=== PATIENT | female | born 1985 | race Hispanic/Latino ===

== ENCOUNTER 2017-03-10 03:29 | Emergency (ER) | payer BC ==
[2017-03-10 04:24] LABS: Bilirubin Negative (Negative); Blood, Urine Negative (Negative); Glucose, Urine (Dipstick) Negative (Negative); Ketone, Urine Negative (Negative); Nitrite Negative (Negative); Protein, Urine (Dipstick) Negative (Neg-Trace); Urobilinogen 0.2 mg/dL (0.2-1.0)
[2017-03-10 04:43] LABS: #Eosinphils 0.1 thou/uL (0.0-0.7); #Lymphocytes 2.3 thou/uL (1.20-3.40); #Monocytes 0.6 thou/uL (0.11-0.59); %Basophils 0.4 % (0.0-1.0); %Eosinophils 1.1 % (0.0-10.0); %Lymphocytes 25.8 % (21.0-51.0); %Monocytes 6.2 % (0.0-10.0); Hematocrit 38.1 % (36.0-47.0); Mean Platelet Volume 8.5 fL (7.4-10.4); Red Blood Cell (RBC) Count 4.31 mill/uL (4.20-5.40)
[2017-03-10 05:02] LABS: ALT (SGPT) 27 U/L (8-55); AST (SGOT) 19 U/L (5-34); Alkaline Phosphatase 99 U/L (40-150); Anion Gap 11 mmol/L (10-20); BUN (Urea Nitrogen) 8 mg/dL (7.0-18.7); Bilirubin, Total 0.5 mg/dL (0.2-1.2); Calc. Creatinine Clearance 0 mL/min (70-130); Calcium 8.9 mg/dL (7.8-10.44); Carbon Dioxide 24 mmol/L (22-29); Chloride 107 mmol/L (98-107); Estimated GFR-MDRD Greater than 90; Globulin 2.9 g/dL (2.4-3.5); Protein, Total 6.9 g/dL (6.0-8.3)
[2017-03-10 05:25] LABS: Lipase 10 U/L (8-78)
--- NOTE | 2017-03-10 08:35 | RAD ---
ACUTE ABDOMINAL SERIES: Date: 03/10/17 INDICATION: 32-year-old female with abdominal pain starting 2 weeks ago that started in the umbilical region and extends down into the right lower quadrant. This has reportedly worsened since Wednesday. The patient states that she has been having nausea and diarrhea. FINDINGS: The lungs are clear. Cardiomediastinal silhouette is normal. No pneumoperitoneum is evident. There is mild thoracolumbar scoliosis. There are surgical clips within the right upper quadrant suspicious for prior cholecystectomy. The theresa wel gas pattern is unobstructed. No acute osseous abnormality is evident. Small phleboliths are seen within the lower left hemipelvis. No suspicious calcifications are seen overlying the renal shadows o r course of the renal collecting systems. IMPRESSION: 1. No acute abnormality demonstrated involving the chest or abdomen. 2. Cholecystectomy. 3. Mild thoracolumbar scoliosis. POS: [facility]
== END 2017-03-10 05:50 | disposition home or self-care (01) ==
LOC: ERS 03:29
DX: A08.4 Viral intestinal infection, unspecified (principal)
CPT/HCPCS: 36415; 74022; 80053; 81003; 83690; 85025; 86140

== ENCOUNTER 2017-05-27 15:45 | Emergency (ER) | payer BC ==
[2017-05-27 16:15] LABS: #Basophils 0.1 thou/uL (0.0-0.2); #Eosinphils 0.1 thou/uL (0.0-0.7); #Lymphocytes 1.8 thou/uL (1.20-3.40); #Monocytes 0.4 thou/uL (0.11-0.59); #Neutrophils 5.9 thou/uL (1.40-6.50); %Basophils 0.6 % (0.0-1.0); %Eosinophils 0.9 % (0.0-10.0); %Lymphocytes 22.1 % (21.0-51.0); %Monocytes 5.3 % (0.0-10.0); %Neutrophils 71.1 % (42.0-75.0); Hemoglobin 14.1 g/dL (12.0-16.0); Mean Corpuscular HGB CONC 34.8 g/dL (32.0-36.0); Mean Corpuscular Hemoglobin 29.7 pg (27.0-31.0); Mean Corpuscular Volume 85.1 fl (81.0-99.0); Mean Platelet Volume 9.1 fL (7.4-10.4); Platelet Count 179 thou/uL (130-400); RBC Distribution Width 12.4 % (11.5-14.5); Red Blood Cell (RBC) Count 4.77 mill/uL (4.20-5.40); White Blood Cell (WBC) Count 8.3 thou/uL (4.8-10.8)
[2017-05-27 16:37] LABS: ALT (SGPT) 33 U/L (8-55); AST (SGOT) 25 U/L (5-34); Albumin 4.5 g/dL (3.5-5.0); Alkaline Phosphatase 95 U/L (40-150); Anion Gap 13 mmol/L (10-20); BUN (Urea Nitrogen) 5 mg/dL (7.0-18.7); Bilirubin, Total 0.5 mg/dL (0.2-1.2); Calc. Creatinine Clearance 0 mL/min (70-130); Calcium 9.4 mg/dL (7.8-10.44); Carbon Dioxide 24 mmol/L (22-29); Chloride 106 mmol/L (98-107); Estimated GFR-MDRD Greater than 90; Glucose 100 mg/dL (70-105); Protein, Total 7.5 g/dL (6.0-8.3); Sodium 139 mmol/L (136-145)
[2017-05-27 16:41] LABS: CKMB 0.4 ng/mL (0-6.6); Troponin I Less than 0.010 ng/mL (< 0.028)
[2017-05-27] MEDS ORDERED: Dicyclomine 20 MG TAB ONE (16:41)
[2017-05-27] MEDS ORDERED: Mag-Al 1200 mg/1200 mg/30 ML UDCUP ONE (16:41)
[2017-05-27] MEDS ORDERED: Famotidine/PF 20 mg/2ml Vial ONE (16:41)
[2017-05-27] MEDS ORDERED: Lidocaine Viscous Sol 2% 15 ml UD Cup ONE (16:41)
--- NOTE | 2017-05-27 16:44 | RAD ---
RADIOGRAPH OF CHEST FRONTAL VIEW 05/27/17 Reference made to radiograph series 03/10/17. INDICATION: Chest pain. FINDINGS: There is no consolidation or effusion. Cardiac silhouette is within normal limits in size. Mild incre ased density is seen related to overlying body wall soft tissues. No significant vascular congestion. Osseous structures are nonacute in appearance. IMPRESSION: No focal consolidation. POS: [facility]
[2017-05-27 17:08] LABS: Bilirubin Negative (Negative); Blood, Urine Negative (Negative); Clarity CLOUDY (Clear); Glucose, Urine (Dipstick) Negative (Negative); Leukocyte Small (Negative); Nitrite Negative (Negative); Protein, Urine (Dipstick) Negative (Neg-Trace); Specific Gravity, Urine 1.009 (1.002-1.036); Urobilinogen 0.2 mg/dL (0.2-1.0); pH, Urine 7.5 (5.0-9.0)
[2017-05-27 17:14] LABS: Bacteria/HPF 1+ HPF (None Seen); Hyaline Casts/LPF 0-3 HYALINE CAST LPF (0-3 Hyaline); RBC/HPF 0-3 HPF (0-3); WBC/HPF 0-3 HPF (0-3)
== END 2017-05-27 16:50 | disposition home or self-care (01) ==
LOC: ERS 15:45
DX: K29.70 Gastritis, unspecified, without bleeding (principal)
CPT/HCPCS: 71045; 80053; 81003; 81015; 82553; 84484; 85025; 93005; 96374; S0028

== ENCOUNTER 2017-06-18 15:29 | Outpatient (CLI) | payer BC | END 2017-06-18 15:30 | disposition home or self-care (01) | LOC: BICCT 15:29 | PROVIDERS: ATTEND Family Medicine | DX: R07.89 Other chest pain (principal) | CPT/HCPCS: 71250; 81001; 87086 ==

== ENCOUNTER 2017-06-20 20:44 | Emergency (ER) | payer BC ==
[~2017-06-20 20:44] MED LIST: ISOVUE-370 76%-LOCM 1 ML ONE
[2017-06-20 21:08] LABS: #Basophils 0.1 thou/uL (0.0-0.2); #Eosinphils 0.2 thou/uL (0.0-0.7); #Lymphocytes 2.8 thou/uL (1.20-3.40); #Monocytes 0.6 thou/uL (0.11-0.59); #Neutrophils 8.6 thou/uL (1.40-6.50); %Basophils 0.5 % (0.0-1.0); %Eosinophils 1.3 % (0.0-10.0); %Monocytes 5.1 % (0.0-10.0); %Neutrophils 70.2 % (42.0-75.0); Hemoglobin 14.9 g/dL (12.0-16.0); Mean Corpuscular HGB CONC 34.7 g/dL (32.0-36.0); Mean Corpuscular Hemoglobin 29.6 pg (27.0-31.0); Mean Corpuscular Volume 85.3 fl (81.0-99.0); Platelet Count 199 thou/uL (130-400); Red Blood Cell (RBC) Count 5.04 mill/uL (4.20-5.40); White Blood Cell (WBC) Count 12.2 thou/uL (4.8-10.8)
[2017-06-20 21:18] LABS: BHCG - Serum Negative (NEGATIVE); Pregs Control Background? CLEAR/WHITE (CLR/WHITE); Pregs Control Bar Appear? YES (CONTROL BAR)
[2017-06-20 21:23] LABS: ALT (SGPT) 16 U/L (8-55); AST (SGOT) 17 U/L (5-34); Albumin 4.4 g/dL (3.5-5.0); Alkaline Phosphatase 99 U/L (40-150); Anion Gap 13 mmol/L (10-20); BUN (Urea Nitrogen) 10 mg/dL (7.0-18.7); Bilirubin, Total 0.4 mg/dL (0.2-1.2); Calc. Creatinine Clearance 0 mL/min (70-130); Calcium 8.9 mg/dL (7.8-10.44); Carbon Dioxide 22 mmol/L (22-29); Chloride 106 mmol/L (98-107); Estimated GFR-MDRD Greater than 90; Globulin 3.1 g/dL (2.4-3.5); Glucose 100 mg/dL (70-105); Protein, Total 7.5 g/dL (6.0-8.3); Sodium 137 mmol/L (136-145)
[2017-06-20 21:26] LABS: CKMB 0.3 ng/mL (0-6.6); Troponin I Less than 0.010 ng/mL (< 0.028)
--- NOTE | 2017-06-20 21:30 | RAD ---
PORTABLE AP CHEST: Date: 06/20/17 HISTORY: Chest pain for a week. Patient diagnosed with bronchitis. COMPARISON: 05/27/17. FINDINGS: Cardiac silhouette and pulmonary vasculature are within normal limits. Lungs remain clear. There has been no interval change from the prior study. IMPRESSION: 1. Stable chest without evidence of an acute cardiopulmonary process. 2. Mild right convex curvature of thoracic spine. POS: [facility]
[2017-06-20 22:23] LABS: Bilirubin Negative (Negative); Blood, Urine Negative (Negative); Clarity CLOUDY (Clear); Glucose, Urine (Dipstick) Negative (Negative); Leukocyte Small (Negative); Nitrite Negative (Negative); Protein, Urine (Dipstick) Negative (Neg-Trace); Specific Gravity, Urine 1.012 (1.002-1.036); Urobilinogen 0.2 mg/dL (0.2-1.0)
[2017-06-20 22:25] LABS: Bacteria/HPF 1+ HPF (None Seen); Hyaline Casts/LPF 0-3 HYALINE CAST LPF (0-3 Hyaline); Pathc Cast-AUWi Flag 0.29 (0-2.49)
--- NOTE | 2017-06-20 22:51 | CT ---
CT ANGIOGRA THORAX WITH IV CONTRAST AND 3D RECONSTRUCTIONS: Date: 06/20/17 HISTORY: Cough, shortness of breath, and tachycardia. FINDINGS: There are no filling defects seen in the pulmonary arteries to suggest a pulmonary embolus. Thoracic aorta is normal in caliber without evidence of an aortic dissection. There is a tiny, less than 4.0 mmm, pulmonary nodule seen within the posterior aspect of the right lo wer lobe, which is too small to characterize. Minimal atelectasis is seen in the lingula and at the l eft lung base. Lungs are otherwise clear. There is no evidence of lymphadenopathy. Post cholecystectomy changes are noted. Remainder of the upper abdomen has a normal CT appearance for arterial phase of imaging. IMPRESSION: 1. No CT evidence of pulmonary embolus. 2. Tiny, too small to characterize, less than 4.0 mm pulmonary nodule right lower lobe. POS: [facility]
== END 2017-06-20 23:21 | disposition home or self-care (01) ==
LOC: ERS 20:44
DX: R91.1 Solitary pulmonary nodule (principal); N39.0 Urinary tract infection, site not specified
CPT/HCPCS: 71045; 71275; 80053; 81003; 81015; 82553; 83690; 84484; 84703; 85025; 85379; 93005; 94640

== ENCOUNTER 2017-12-27 14:28 | Outpatient (CLI) | payer BC ==
--- NOTE | 2017-12-27 17:05 | ULT ---
BILATERAL BREAST ULTRASOUND: HISTORY: A 32-year-old female with palpable abnormalities at the 10 o'clock position of the right breast and a t the 3 o'clock position of the left breast. CORRELATION: Mammograms of same day. FINDINGS: Sonographic evaluation in the region of palpable concern, at the 10 o'clock position of the right pia ast and the 3 o'clock position of the left breast, demonstrate no abnormality. IMPRESSION: BI-RADS category 2-Benign findings. Return to age appropriate screening, based on risk factors. POS: [facility]
== END 2017-12-27 14:29 | disposition home or self-care (01) ==
LOC: BICULT 14:28
DX: N63.0 Unspecified lump in unspecified breast (principal)
CPT/HCPCS: 76641; 77066; G0279

== ENCOUNTER 2018-05-04 14:33 | Emergency (ER) | payer BC ==
[2018-05-04 14:58] LABS: Bilirubin Negative (Negative); Blood, Urine Negative (Negative); Clarity CLEAR (Clear); Glucose, Urine (Dipstick) Negative (Negative); Leukocyte Negative (Negative); Nitrite Negative (Negative); Protein, Urine (Dipstick) Negative (Neg-Trace); Urobilinogen 0.2 mg/dL (0.2-1.0); pH, Urine 6.5 (5.0-9.0)
[2018-05-04 15:12] LABS: #Eosinphils 0.1 thou/uL (0.0-0.7); #Lymphocytes 1.8 thou/uL (1.20-3.40); #Monocytes 0.4 thou/uL (0.11-0.59); #Neutrophils 5.9 thou/uL (1.40-6.50); %Basophils 0.5 % (0.0-1.0); %Eosinophils 0.8 % (0.0-10.0); %Lymphocytes 22.1 % (21.0-51.0); %Monocytes 4.6 % (0.0-10.0); %Neutrophils 72.1 % (42.0-75.0); Hemoglobin 14.4 g/dL (12.0-16.0); Mean Corpuscular HGB CONC 34.1 g/dL (32.0-36.0); Mean Corpuscular Hemoglobin 30.2 pg (27.0-31.0); Mean Corpuscular Volume 88.4 fL (78.0-98.0); Mean Platelet Volume 9.2 fL (7.4-10.4); Platelet Count 180 thou/uL (130-400); RBC Distribution Width 11.9 % (11.5-14.5); Red Blood Cell (RBC) Count 4.79 mill/uL (4.20-5.40); White Blood Cell (WBC) Count 8.1 thou/uL (4.8-10.8)
[2018-05-04 15:41] LABS: ALT (SGPT) 25 U/L (8-55); AST (SGOT) 24 U/L (5-34); Albumin 4.4 g/dL (3.5-5.0); Alkaline Phosphatase 109 U/L (40-150); Anion Gap 13 mmol/L (10-20); BUN (Urea Nitrogen) 8 mg/dL (7.0-18.7); Bilirubin, Total 0.4 mg/dL (0.2-1.2); Calc. Creatinine Clearance 0 mL/min (70-130); Calcium 9.2 mg/dL (7.8-10.44); Carbon Dioxide 24 mmol/L (22-29); Chloride 106 mmol/L (98-107); Estimated GFR-MDRD Greater than 90; Globulin 3.1 g/dL (2.4-3.5); Glucose 94 mg/dL (70-105); Lipase 13 U/L (8-78); Potassium 3.9 mmol/L (3.5-5.1); Protein, Total 7.5 g/dL (6.0-8.3); Sodium 139 mmol/L (136-145)
--- NOTE | 2018-05-04 16:36 | CT ---
CT ABDOMEN WITH CONTRAST CT PELVIS WITH CONTRAST: DATE: 05/04/18 HISTORY: 33-year-old female with acute abdominal pain and nausea. TECHNIQUE: IV injection of iodinated contrast media: 100 mL [id number]. Oral contrast media: Not administered. FINDINGS: Liver: No focal solid mass. Spleen: No splenomegaly. Pancreas: No mass or surrounding fat stranding. Adrenals: No mass. Kidneys: No hydronephrosis or enhancement abnormalities. Ureters: No dilation. Bladder: No pathology identified. Abdominal aorta: No aneurysm. Small bowel: No dilation. Colon: No adjacent fat stranding. Appendix: No dilation or adjacent fat stranding. Free air: None. Free fluid: None. IMPRESSION: 1. No major pathology identified. 2. Status post cholecystectomy. 3. Status post hysterectomy. ashley [] POS: [facility]
== END 2018-05-04 16:30 | disposition home or self-care (01) ==
LOC: ERS 14:33
DX: R10.31 Right lower quadrant pain (principal); Z79.899 Other long term (current) drug therapy
CPT/HCPCS: 36415; 74177; 80053; 81003; 83690; 85025; Q9966